=== PATIENT | male | born 1995 | race Caucasian/White ===

== ENCOUNTER 2022-12-03 16:50 | Emergency (ER) | payer SELFPAY ==
[2022-12-03 17:22] VITALS: BP 129/69; PULSE 63; RESP 18; TEMP 98; BMI 33.5
[2022-12-03] MEDS ORDERED: LORATADINE 10 MG TABLET PO ONE (19:27)
[2022-12-03] MEDS ORDERED: ALBUTEROL SO4 2.5/IPRATROPIUM 0.5 INH SOL 3 ML VIAL.NEB. NEB ONE ×2 (19:27→19:37)
[2022-12-03] MEDS ORDERED: LORATADINE 10 MG TABLET ONE (19:37)
== END 2022-12-03 20:03 | disposition home or self-care (01) ==
LOC: JERFT 16:50 → JER 16:50 → JERFT 20:03
PROC: 3E0F7GC Introduction of Other Therapeutic Substance into Respiratory Tract, Via Natural or Artificial Opening (ICD-10-PCS; principal; 2022-12-03)
DX: J45.998 Other asthma (principal); R06.02 Shortness of breath; R05.9 Cough, unspecified; R07.89 Other chest pain
CPT/HCPCS: 71046-TC-FY; 99283-25